=== PATIENT | female | born 1960 | race Two or more races ===

== ENCOUNTER 2016-07-17 22:24 | Emergency (ER) | payer OTHER ==
[~2016-07-17] VITALS: Ht 170.2 cm; Wt 72.6 kg
[2016-07-17 22:28] VITALS: BP 145/78
[2016-07-17] MEDS ORDERED: SILVER SULFADIAZINE CREAM 25 GM TUBE ONE (22:46)
[2016-07-17] MEDS ORDERED: HYDROCODONE/APAP 5/325MG 1 EACH TABLET ONE (22:57)
[2016-07-17] MEDS ORDERED: ONDANSETRON 4 MG TAB.RAPDIS ONE (22:57)
[2016-07-17] MEDS ORDERED: TDAP [DIPH/PERTUSSIS/TET] 0.5 ML VIAL IM ONE ×2 (22:57→23:00)
[2016-07-17] MEDS ORDERED: HYDROCODONE/APAP 5/325MG 1 EACH TABLET PO ONE (23:00)
[2016-07-17] MEDS ORDERED: ONDANSETRON 4 MG TAB.RAPDIS SL ONE (23:00)
[2016-07-17] MEDS ORDERED: SILVER SULFADIAZINE CREAM 25 GM TUBE TP ONE (23:00)
== END 2016-07-17 23:08 | disposition home or self-care (01) ==
LOC: ER 22:24
DX: T21.21XA Burn of second degree of chest wall, initial encounter (principal); E78.00 Pure hypercholesterolemia, unspecified; T31.0 Burns involving less than 10% of body surface; Z88.0 Allergy status to penicillin; X11.8XXA Contact with other hot tap-water, initial encounter; Y93.89 Activity, other specified; Y92.89 Other specified places as the place of occurrence of the external cause; Y99.9 Unspecified external cause status
CPT/HCPCS: 16020; 90715; 99284; A4606; Q0162; Z7610

== ENCOUNTER 2018-06-21 18:11 | Emergency (ER) | payer MEDICAID, OTHER ==
[~2018-06-21] VITALS: Ht 162.6 cm; Wt 72.6 kg
[2018-06-21 18:18] VITALS: BP 167/74
[2018-06-21 18:57] LABS: BASOPHILS % (AUTO) 0.8 % (0.0-2.0); HEMATOCRIT 39 % (33-45); HEMOGLOBIN 13.5 g/dL (11.5-14.8); LYMPHOCYTES # (AUTO) 1.4 /CMM (0.8-4.8); LYMPHOCYTES % (AUTO) 22.8 % (20.0-44.0); MEAN CORPUSCULAR HGB CONC 35 g/dl (31.0-36.0); MEAN CORPUSCULAR VOLUME 84 fL (82-100); MONOCYTES # (AUTO) 0.5 /CMM (0.1-1.30); MONOCYTES % (AUTO) 7.7 % (2.0-12.0); NEUTROPHILS # (AUTO) 3.9 /CMM (1.8-8.9); NEUTROPHILS % (AUTO) 64.7 % (43.0-81.0); PLATELET COUNT (AUTO) 272 /CMM (150-450); RED BLOOD CELL COUNT(AUTO) 4.59 MIL/uL (4.0-5.2)
[2018-06-21] MEDS ORDERED: diphenhydrAMINE HCL 25 MG CAPSULE ONE (18:59)
[2018-06-21] MEDS ORDERED: FAMOTIDINE (20 MG) 20 MG TABLET ONE (18:59)
[2018-06-21] MEDS ORDERED: diphenhydrAMINE HCL 50 MG CAPSULE PO ONE (19:00)
[2018-06-21] MEDS ORDERED: predniSONE 20 MG TABLET ONE (19:00)
[2018-06-21] MEDS ORDERED: predniSONE 10 MG TABLET PO ONE (19:00)
[2018-06-21] MEDS ORDERED: FAMOTIDINE (20 MG) 20 MG TABLET PO ONE (19:00)
[2018-06-21 19:07] LABS: CALCIUM, SERUM 9.3 mg/dL (8.5-10.1); CREATININE 0.7 mg/dL (0.6-1.3); POTASSIUM 3.8 mmol/L (3.5-5.1)
[2018-06-21 19:14] LABS: ALBUMIN 3.8 g/dL (3.4-5.0); BILIRUBIN,DIRECT 0.1 mg/dL (0.0-0.2); BILIRUBIN,TOTAL 0.5 mg/dL (0.2-1.0); TOTAL PROTEIN, SERUM 7.4 g/dL (6.4-8.2)
== END 2018-06-21 20:21 | disposition home or self-care (01) ==
LOC: ER 18:12
DX: R21 Rash and other nonspecific skin eruption (principal); M35.00 Sjogren syndrome, unspecified; E78.00 Pure hypercholesterolemia, unspecified; H40.9 Unspecified glaucoma; Z88.0 Allergy status to penicillin
CPT/HCPCS: 36415; 80048-TC; 80076-TC; 85025-TC; 85730-TC; A4606; Q0163; Z7610

== ENCOUNTER 2022-03-07 22:45 | Emergency (ER) | payer MEDICAID ==
[~2022-03-07] VITALS: Ht 162.6 cm; Wt 70.3 kg
--- NOTE | 2022-03-07 23:45 | NUR ---
BIBSELF C/O COUGH AND TROUBLE SLEEPING X 2 WEEKS. AAOX4. AMBULATORY. ABLE TO MAKE NEEDS KNOWN. NO SOB, NO CHEST PAIN. PLACED IN RM 19. VITALS CHECKED.
--- NOTE | 2022-03-08 00:01 | NUR ---
COVID SWAB, INFLUENZA SWAB AND STREP SWAB DONE AND SENT TO LAB
--- NOTE | 2022-03-08 01:11 | NUR ---
[employer] AT PT'S BEDSIDE
--- NOTE | 2022-03-08 02:15 | NUR ---
Patient discharged to home in stable condition. Written and verbal after care instructions given. Patient verbalizes understanding of instruction. pt ambulatory with a steady gait
[2022-03-08 02:17] VITALS: BP 121/76
== END 2022-03-08 02:19 | disposition home or self-care (01) ==
LOC: ER 22:48
DX: U09.9 Post COVID-19 condition, unspecified (principal); U07.1 COVID-19
CPT/HCPCS: 99284; 71045; 87426; 87804; 87070; 87880; C9803; 86403-TC